=== PATIENT | female | born 1960 | race Two or more races ===

== ENCOUNTER → 2018-11-18 09:41 | Outpatient (CLI) | payer BC ==
[2013-10-03 14:17] VITALS: BMI 23.6
[~2018-11-18 09:41] MED LIST: NUCYNTA50 MG PO; TOPAMAX200 MG PO; TYLENOL325 MG PO; TYLENOL650 MG PO
--- NOTE | 2018-11-18 11:25 | NUR ---
Pt arrived to have blood drawn from port, port accessed prior to pt arrival. Blood drawn, and port flushed with Heparin after use.
[2018-11-18 11:51] LABS: ALBUMIN 2.3 g/dL (3.4-5.0); ALKALINE PHOSPHATASE 323 U/L (46-116); ALT (SGPT) 59 U/L (10-68); BILIRUBIN - DIRECT 5.47 mg/dL (0.00-0.30); BILIRUBIN - TOTAL 7.37 mg/dL (0.2-1.3); CALC OSMOLALITY 276 mosm/kg (275-300); CALCIUM 8.1 mg/dL (8.5-10.1); CARBON DIOXIDE 22.2 mmol/L (21.0-32.0); CHLORIDE - SERUM 101 mmol/L (98-107); CREATININE - SERUM 0.6 mg/dL (0.6-1.3); GLUCOSE 146 mg/dL (74-106); POTASSIUM - SERUM 3.6 mmol/L (3.5-5.1); PROTEIN - SERUM 5.8 g/dL (6.4-8.2); SODIUM 134 mmol/L (136-145); UREA NITROGEN 30 mg/dL (7-18); eGFR NON AFRICAN AMERICAN > 90 mL/min (90-120)
[2018-11-18 11:57] LABS: BASOPHILS 0 % (0-2); HEMATOCRIT 23.4 % (36.0-48.0); HEMOGLOBIN 7.8 g/dL (12-16); IMMATURE GRANULOCYTES 0.3 % (0-5); LYMPHOCYTES 26.6 % (15-50); MCH 35.3 pg (26.0-34.0); MCHC 33.3 g/dL (31.0-37.0); MCV 105.9 fL (80.0-100.0); MONOCYTES 7.3 % (2-11); NEUTROPHILS 64.8 % (40-80); RBC 2.21 10x6/uL (4.00-5.40); RDW 28.6 % (11.5-14.5); WBC 2.9 10x3/uL (4.8-10.8)
[2018-11-18 13:04] LABS: PLATELET COUNT 20 10x3/uL (130-400)
== END | disposition home or self-care (01) ==
LOC: D.LAB 09:41
PROVIDERS: ATTEND Emergency Medicine
DX: R53.83 Other fatigue (principal)